=== PATIENT | female | born 1980 | race African-American/Black ===

== ENCOUNTER 2018-06-11 21:48 | Emergency (ER) | payer MEDICAID ==
[~2018-06-11] VITALS: Ht 162.6 cm; Wt 100.0 kg
[~2018-06-11 21:48] MED LIST: NO MEDS
[2018-06-11 21:55] VITALS: BP 152/100
[2018-06-11] MEDS ORDERED: no medications PO (22:07)
[2018-06-11] MEDS ORDERED: PHENYTOIN SODIUM 100 MG ER CAPSULE PO ONE (23:30)
[2018-06-11] MEDS ORDERED: LIDOCAINE 2% VISCOUS 15 ML SOLUTION UDCUP PO ONE (23:30)
[2018-06-11] MEDS ORDERED: ACETAMINOPHEN/CODEINE 300-30 MG TABLET PO ONE (23:30)
[2018-06-11] MEDS ORDERED: LORazepam 2 MG/ML VIAL IM ONE (23:30)
== END 2018-06-12 00:59 | disposition home or self-care (01) ==
LOC: EMS 21:49
DX: S00.532A Contusion of oral cavity, initial encounter (principal); G40.909 Epilepsy, unspecified, not intractable, without status epilepticus; J45.909 Unspecified asthma, uncomplicated; F17.210 Nicotine dependence, cigarettes, uncomplicated; Z88.5 Allergy status to narcotic agent; X58.XXXA Exposure to other specified factors, initial encounter; Y93.89 Activity, other specified; Y92.89 Other specified places as the place of occurrence of the external cause; Y99.8 Other external cause status
CPT/HCPCS: 81025; 96372; 99284; 99406; J2060